=== PATIENT | female | born 1960 | race African-American/Black ===

== ENCOUNTER 2017-06-24 10:20 | Emergency (ER) | payer MEDICARE, MEDICAID ==
[~2017-06-24] VITALS: Ht 154.9 cm; Wt 67.9 kg
[~2017-06-24 10:20] MED LIST: AMBIEN; ESTR0.3T PO; FLUO10CA13 PO; GABA-826 PO; GABA300C10 PO; GABAPENTIN; LISI2.5T PO; LORA0.5T PO; LORAZEPAM; LOSA25TA5 PO; METHADONE; NORCO; OXYC10TA6 PO; PERCOCET; QUET200T PO; REGLAN; SEROQUEL; SOMA PO; TRIAMTERENE/HCTZ; VALA500T PO
[2017-06-24 10:22] VITALS: BP 110/75
[2017-06-24] MEDS ORDERED: ONDANSETRON ODT 4 MG ONE (10:54)
[2017-06-24] MEDS ORDERED: OXYcodone ORAL.CONC 20 MG/ML PO ONE (11:00)
[2017-06-24] MEDS ORDERED: ONDANSETRON ODT 4 MG PO ONE (11:00)
== END 2017-06-24 11:24 | disposition home or self-care (01) ==
LOC: ED 11:10
DX: K08.89 Other specified disorders of teeth and supporting structures (principal); I10 Essential (primary) hypertension; E11.9 Type 2 diabetes mellitus without complications; M19.90 Unspecified osteoarthritis, unspecified site; J45.909 Unspecified asthma, uncomplicated; Z86.73 Personal history of transient ischemic attack (TIA), and cerebral infarction without residual deficits; Z88.6 Allergy status to analgesic agent; Z88.8 Allergy status to other drugs, medicaments and biological substances; Z91.013 Allergy to seafood
CPT/HCPCS: 99283; Q0162

== ENCOUNTER 2017-06-26 18:35 | Emergency (ER) | payer MEDICARE, MEDICAID ==
[~2017-06-26] VITALS: Ht 154.9 cm; Wt 67.3 kg
[2017-06-26 19:47] VITALS: BP 118/78
== END 2017-06-26 19:50 | disposition home or self-care (01) ==
LOC: ED 19:50
DX: K08.89 Other specified disorders of teeth and supporting structures (principal); M19.90 Unspecified osteoarthritis, unspecified site; F32.9 Major depressive disorder, single episode, unspecified; E11.9 Type 2 diabetes mellitus without complications; I10 Essential (primary) hypertension; J45.909 Unspecified asthma, uncomplicated
CPT/HCPCS: 99283

== ENCOUNTER 2017-09-28 07:33 | Emergency (ER) | payer MEDICARE, MEDICAID ==
[~2017-09-28] VITALS: Ht 156.2 cm; Wt 69.1 kg
[2017-09-28] MEDS ORDERED: ALBUTEROL/IPRATROPIUM 2.5MG/0.5MG, 3 ML NPPB ONE (08:00)
[2017-09-28] MEDS ORDERED: IBUPROFEN 200 MG TABLET PO ONE (08:00)
[2017-09-28] MEDS ORDERED: ALBUTEROL/IPRATROPIUM 2.5MG/0.5MG, 3 ML ONE (08:07)
[2017-09-28] MEDS ORDERED: IBUPROFEN 200 MG TABLET ONE (08:28)
[2017-09-28] MEDS ORDERED: ONDANSETRON ODT 4 MG ONE (08:28)
[2017-09-28] MEDS ORDERED: ONDANSETRON ODT 4 MG PO ONE (08:30)
[2017-09-28 08:33] VITALS: BP 136/85
[2017-09-28] MEDS ORDERED: HYDR10TA4 PO (08:41)
[2017-09-28] MEDS ORDERED: OXYC10TA6 PO (08:41)
[2017-09-28] MEDS ORDERED: CARI250T PO (08:41)
[2017-09-28] MEDS ORDERED: ONDA4TAB7 PO (08:41)
[2017-09-28] MEDS ORDERED: METO5TAB57 PO (08:41)
== END 2017-09-28 09:08 | disposition home or self-care (01) ==
LOC: ED 08:16
DX: J20.9 Acute bronchitis, unspecified (principal); E11.9 Type 2 diabetes mellitus without complications; J45.909 Unspecified asthma, uncomplicated; I11.9 Hypertensive heart disease without heart failure; Z86.73 Personal history of transient ischemic attack (TIA), and cerebral infarction without residual deficits
CPT/HCPCS: 71020; 94640; 99284; Q0162; J7620

== ENCOUNTER 2017-12-25 06:28 | Emergency (ER) | payer MEDICARE, MEDICAID ==
[~2017-12-25] VITALS: Ht 157.5 cm; Wt 70.0 kg
[~2017-12-25 06:28] MED LIST changes: +CARI250T PO; +HYDR10TA4 PO; +LISI1TAB3 PO; +METO5TAB57 PO; +ONDA4TAB7 PO
[2017-12-25] MEDS ORDERED: ONDANSETRON 2MG/ML, 2ML IVPush ONE (07:30)
[2017-12-25] MEDS ORDERED: SODIUM CHLORIDE FLUSH 10ML SYR IVF ONE (07:30)
[2017-12-25] MEDS ORDERED: MORPHINE SULFATE 4 MG/ML, 1ML IVPush PRN (07:30)
[2017-12-25] MEDS ORDERED: ONDANSETRON 2MG/ML, 2ML ONE (07:36)
[2017-12-25] MEDS ORDERED: MORPHINE SULFATE 4 MG/ML, 1ML ONE (07:36)
[2017-12-25 07:43] LABS: BASOPHILS # (AUTO) 0.08 x10^3/uL (0-0.1); BASOPHILS % (AUTO) 1 % (0-1); EOSINOPHILS # (AUTO) 0.34 x10^3/uL (0-0.4); EOSINOPHILS % (AUTO) 4 % (1-7); LYMPHOCYTES # (AUTO) 3.15 x10^3/uL (1-3.4); LYMPHOCYTES % (AUTO) 38 % (22-44); MD NO; MEAN CORPUSCULAR HEMOGLOBIN 30.9 pg (27.0-34.8); MEAN CORPUSCULAR HGB CONC 33.4 g/dL (32.4-35.8); MEAN CORPUSCULAR VOLUME 92.6 fL (80-100); MEAN PLATELET VOLUME 8.1 fL (7.4-10.4); MONOCYTES # (AUTO) 0.52 x10^3/uL (0.2-0.8); MONOCYTES % (AUTO) 6 % (2-9); NEUTROPHILS # (AUTO) 4.21 x10^3/uL (1.8-6.8); NEUTROPHILS % (AUTO) 51 % (42-75); PLATELET COUNT 426 x10^3/uL (130-400); RED BLOOD COUNT 3.69 x10^6/uL (3.82-5.3); RED CELL DISTRIBUTION WIDTH 14.9 % (9.6-15.2)
[2017-12-25 07:44] LABS: MICROSCOPIC NOT IND
[2017-12-25 07:49] LABS: CULTURE INDICATED? NO
[2017-12-25 07:57] LABS: CHLORIDE 110 mmol/L (98-107)
[2017-12-25 08:25] LABS: ALANINE AMINOTRANSFERASE 16 U/L (12-78); ALBUMIN 3.4 g/dL (3.4-5.0); ANION GAP 8 mmol/L (5-15); CALCIUM 8.6 mg/dL (8.5-10.1)
[2017-12-25 08:26] LABS: ALKALINE PHOSPHATASE 99 U/L (45-117); BILIRUBIN,TOTAL 0.2 mg/dL (0.2-1.0); TOTAL PROTEIN 7.2 g/dL (6.4-8.2)
[2017-12-25 08:35] VITALS: BP 118/57
[2017-12-25] MEDS ORDERED: METOCLOPRAMIDE 5 MG/ML, 2ML ONE (08:58)
[2017-12-25] MEDS ORDERED: CEFTRIAXONE PMX 1GM/50ML 50 ML ONE (08:58)
[2017-12-25] MEDS ORDERED: AZITHROMYCIN 500 MG TABLET ONE (08:58)
[2017-12-25] MEDS ORDERED: METOCLOPRAMIDE 5 MG/ML, 2ML IVPush ONE (09:00)
[2017-12-25] MEDS ORDERED: AZITHROMYCIN 500 MG TABLET PO ONE (09:00)
[2017-12-25] MEDS ORDERED: CEFTRIAXONE PMX 1GM/50ML 50 ML IVPB ONE (09:00)
[2017-12-25] MEDS ORDERED: FLUCONAZOLE 100 MG TABLET PO ONE (10:00)
[2017-12-25] MEDS ORDERED: FLUCONAZOLE 100 MG TABLET ONE (10:01)
== END 2017-12-25 10:09 | disposition home or self-care (01) ==
LOC: ED 07:37
DX: K59.00 Constipation, unspecified (principal); R10.84 Generalized abdominal pain; E11.9 Type 2 diabetes mellitus without complications; F17.200 Nicotine dependence, unspecified, uncomplicated; R30.0 Dysuria; J45.909 Unspecified asthma, uncomplicated
CPT/HCPCS: 36415; 76830; 80053; 81003; 85025; 96365; 96375; 99285; J0696; J2405; J2765

== ENCOUNTER 2018-08-15 13:27 | Emergency (ER) | payer MEDICARE, MEDICAID ==
[~2018-08-15] VITALS: Ht 157.5 cm; Wt 76.0 kg
[~2018-08-15 13:27] MED LIST changes: +LORA-446 PO; -LOSA25TA5 PO; +LOSA25TA6 PO; +SERT50TA5 PO
[2018-08-15] MEDS ORDERED: FAMOTIDINE 20 MG TABLET PO ONE (14:00)
[2018-08-15] MEDS ORDERED: ONDANSETRON ODT 4 MG PO ONE (14:00)
[2018-08-15] MEDS ORDERED: MAALOX/HYOSCYAMINE/LIDOCAINE 45 ML BTL PO ONE (14:00)
[2018-08-15 14:23] LABS: MEAN CORPUSCULAR HEMOGLOBIN 28.9 pg (27.0-34.8); MEAN CORPUSCULAR HGB CONC 33.1 g/dL (32.4-35.8); MEAN CORPUSCULAR VOLUME 87.2 fL (80-100); MEAN PLATELET VOLUME 8.3 fL (7.4-10.4); PLATELET COUNT 372 x10^3/uL (130-400); RED BLOOD COUNT 4.15 x10^6/uL (3.82-5.3); RED CELL DISTRIBUTION WIDTH 17.3 % (9.6-15.2)
[2018-08-15 14:27] LABS: ALANINE AMINOTRANSFERASE 20 U/L (12-78); ALBUMIN 3.3 g/dL (3.4-5.0); ANION GAP 7 mmol/L (5-15); CALCIUM 9.3 mg/dL (8.5-10.1); CHLORIDE 103 mmol/L (98-107); CREATININE 0.75 mg/dL (0.55-1.02)
[2018-08-15] MEDS ORDERED: FAMOTIDINE 20 MG TABLET ONE (14:30)
[2018-08-15 14:31] LABS: ALKALINE PHOSPHATASE 115 U/L (45-117); BILIRUBIN,TOTAL 0.2 mg/dL (0.2-1.0); TOTAL PROTEIN 7.8 g/dL (6.4-8.2); TROPONIN I < 0.015 ng/mL (0.000-0.045)
[2018-08-15] MEDS ORDERED: MAALOX/HYOSCYAMINE/LIDOCAINE 45 ML BTL ONE (14:31)
[2018-08-15] MEDS ORDERED: ONDANSETRON ODT 4 MG ONE (14:31)
[2018-08-15 15:02] LABS: MD YES
[2018-08-15 15:07] VITALS: BP 112/49
[2018-08-15 15:27] LABS: BASOS% (MANUAL) 1 % (0-1); EOS#(MANUAL) 0.19 x10^3/uL (0.0-0.4); EOS% (MANUAL) 2 % (1-7); LYMPH#(MANUAL) 2.98 x10^3/uL (1-3.4); LYMPHS% (MANUAL) 31 % (22-44); MONOS#(MANUAL) 0.29 x10^3/uL (0.3-2.7); MONOS% (MANUAL) 3 % (2-9); SEG#(MANUAL) 6.05 x10^3/uL (1.8-6.8); SEGS% (MANUAL) 63 % (42-75)
[2018-08-15 15:28] LABS: <PLATELET ESTIMATE> ADEQUATE; ANISOCYTOSIS 1+; OVALOCYTES 1+
[2018-08-15 15:29] LABS: LARGE PLATELETS 1+
== END 2018-08-15 16:02 | disposition home or self-care (01) ==
LOC: ED 15:56
DX: K21.9 Gastro-esophageal reflux disease without esophagitis (principal); R07.89 Other chest pain; F17.200 Nicotine dependence, unspecified, uncomplicated; E11.8 Type 2 diabetes mellitus with unspecified complications; I11.9 Hypertensive heart disease without heart failure; M19.90 Unspecified osteoarthritis, unspecified site; M54.9 Dorsalgia, unspecified; G89.29 Other chronic pain; J44.9 Chronic obstructive pulmonary disease, unspecified; Z86.73 Personal history of transient ischemic attack (TIA), and cerebral infarction without residual deficits
CPT/HCPCS: 36415; 71045; 80053; 83690; 84484; 85025; 93005; 99285; Q0162

== ENCOUNTER 2018-10-28 15:56 | Emergency (ER) | payer MEDICARE, MEDICAID ==
[~2018-10-28] VITALS: Ht 157.5 cm; Wt 78.8 kg
[~2018-10-28 15:56] MED LIST changes: +LOSA25TA25 PO; -LOSA25TA6 PO; +SERT50TA28 PO; -SERT50TA5 PO
--- NOTE | 2018-10-28 16:31 | NUR ---
[facility] TECHNICIAN: PT TO ED ROOM 24 FROM LOBBY IN NAD
[2018-10-28 16:55] LABS: BASOPHILS # (AUTO) 0.26 x10^3/uL (0-0.1); BASOPHILS % (AUTO) 3 % (0-1); EOSINOPHILS # (AUTO) 0.36 x10^3/uL (0-0.4); EOSINOPHILS % (AUTO) 4 % (1-7); LYMPHOCYTES # (AUTO) 4.33 x10^3/uL (1-3.4); LYMPHOCYTES % (AUTO) 45 % (22-44); MD NO; MEAN CORPUSCULAR HEMOGLOBIN 29.8 pg (27.0-34.8); MEAN CORPUSCULAR HGB CONC 33.6 g/dL (32.4-35.8); MEAN CORPUSCULAR VOLUME 88.6 fL (80-100); MEAN PLATELET VOLUME 7.9 fL (7.4-10.4); MONOCYTES # (AUTO) 0.49 x10^3/uL (0.2-0.8); MONOCYTES % (AUTO) 5 % (2-9); NEUTROPHILS # (AUTO) 4.19 x10^3/uL (1.8-6.8); NEUTROPHILS % (AUTO) 44 % (42-75); PLATELET COUNT 438 x10^3/uL (130-400); RED BLOOD COUNT 3.89 x10^6/uL (3.82-5.3); RED CELL DISTRIBUTION WIDTH 14.8 % (9.6-15.2)
[2018-10-28] MEDS ORDERED: ALBUTEROL/IPRATROPIUM 2.5MG/0.5MG, 3 ML NPPB SCH (17:00)
[2018-10-28] MEDS ORDERED: ALBUTEROL/IPRATROPIUM 2.5MG/0.5MG, 3 ML ONE ×2 (17:07→17:16)
[2018-10-28 17:08] LABS: ALBUMIN 3.6 g/dL (3.4-5.0); ANION GAP 6 mmol/L (5-15); CALCIUM 8.8 mg/dL (8.5-10.1); CHLORIDE 106 mmol/L (98-107)
[2018-10-28 17:18] LABS: ALANINE AMINOTRANSFERASE 21 U/L (12-78); ALKALINE PHOSPHATASE 104 U/L (45-117); BILIRUBIN,TOTAL 0.7 mg/dL (0.2-1.0); CREATININE 0.97 mg/dL (0.55-1.02); TOTAL PROTEIN 7.6 g/dL (6.4-8.2)
[2018-10-28 17:29] VITALS: BP 120/43
--- NOTE | 2018-10-28 17:29 | NUR ---
pt presents to ED with c/o sob x 2 days. pt denies any pain. pt a&o, resps even and unlabored, pt very talkative, speaking easily in full sentences. breathing tx complete, pt reports sob improved. call light in reach, all monitors in place.
--- NOTE | 2018-10-28 17:43 | NUR ---
pt medicated per emar. pt tolerated well. pt aox4. resps even and unlabored. all monitors in place. call light within reach.
--- NOTE | 2018-10-28 18:38 | NUR ---
pt given dc instructions and script. pt educated regarding dc medication which is albuterol at dc. pt amb to dc with steady gait. pt aox4. resps even and unlabored. no acute distress at dc.
== END 2018-10-28 18:39 | disposition home or self-care (01) ==
LOC: ED 17:03
DX: J44.1 Chronic obstructive pulmonary disease with (acute) exacerbation (principal); F17.200 Nicotine dependence, unspecified, uncomplicated; K21.9 Gastro-esophageal reflux disease without esophagitis; G89.29 Other chronic pain; I10 Essential (primary) hypertension; E11.9 Type 2 diabetes mellitus without complications
CPT/HCPCS: 36415; 71046; 80053; 83880; 85025; 93005; 94640; 99284; J7512; J7620

== ENCOUNTER 2018-12-10 12:46 | Emergency (ER) | payer MEDICARE, MEDICAID ==
[~2018-12-10] VITALS: Ht 157.5 cm; Wt 75.4 kg
--- NOTE | 2018-12-10 13:09 | NUR ---
FIRST CONTACT WITH PT. Pt resting on gurney connected to all monitors. Pt is 99% on room air, skin is appropriate for ethnicity, warm, and dry. PT is [id number]. All safety measures in place. NADN.
[2018-12-10] MEDS ORDERED: ALBUTEROL/IPRATROPIUM 2.5MG/0.5MG, 3 ML NPPB ONE (13:30)
[2018-12-10] MEDS ORDERED: ALBU0.63 NEB (13:32)
[2018-12-10] MEDS ORDERED: AMLO10TA8 PO (13:32)
[2018-12-10] MEDS ORDERED: ALBUTEROL SULFATE 2.5 MG/3 ML NPPB ONE (13:35)
[2018-12-10] MEDS ORDERED: ALBUTEROL SULFATE 2.5 MG/3 ML ONE (13:41)
[2018-12-10] MEDS ORDERED: ACETAMINOPHEN 500 MG TABLET ONE (13:45)
[2018-12-10] MEDS ORDERED: BENZONATATE 100 MG CAPSULE ONE ×2 (13:45→13:48)
[2018-12-10] MEDS ORDERED: ACETAMINOPHEN 325 MG TABLET PO ONE (14:00)
[2018-12-10] MEDS ORDERED: BENZONATATE 100 MG CAPSULE PO ONE (14:00)
[2018-12-10] MEDS ORDERED: CEFTRIAXONE PMX 1GM/50ML 50 ML IV ONE (14:30)
[2018-12-10 14:57] LABS: BASOPHILS # (AUTO) 0.03 x10^3/uL (0-0.1); BASOPHILS % (AUTO) 0 % (0-1); EOSINOPHILS # (AUTO) 0.39 x10^3/uL (0-0.4); EOSINOPHILS % (AUTO) 4 % (1-7); LYMPHOCYTES # (AUTO) 2.55 x10^3/uL (1-3.4); LYMPHOCYTES % (AUTO) 24 % (22-44); MD NO; MEAN CORPUSCULAR HGB CONC 32.6 g/dL (32.4-35.8); MEAN PLATELET VOLUME 7.6 fL (7.4-10.4); MONOCYTES # (AUTO) 0.42 x10^3/uL (0.2-0.8); MONOCYTES % (AUTO) 4 % (2-9); NEUTROPHILS # (AUTO) 7.09 x10^3/uL (1.8-6.8); NEUTROPHILS % (AUTO) 68 % (42-75); PLATELET COUNT 432 x10^3/uL (130-400); RED BLOOD COUNT 3.78 x10^6/uL (3.82-5.3); RED CELL DISTRIBUTION WIDTH 15.9 % (9.6-15.2)
[2018-12-10 15:08] LABS: ALBUMIN 3.4 g/dL (3.4-5.0); ANION GAP 7 mmol/L (5-15); CHLORIDE 109 mmol/L (98-107); CREATININE 1.07 mg/dL (0.55-1.02)
[2018-12-10] MEDS ORDERED: CEFTRIAXONE 1,000 MG IM ONE (15:30)
[2018-12-10] MEDS ORDERED: POTASSIUM CHLORIDE 20 MEQ TAB.ER.PRT PO ONE (15:30)
[2018-12-10] MEDS ORDERED: POTASSIUM CHLORIDE 20 MEQ TAB.ER.PRT ONE (15:34)
[2018-12-10] MEDS ORDERED: CEFTRIAXONE 1,000 MG ONE (15:34)
[2018-12-10 15:46] VITALS: BP 115/69
--- NOTE | 2018-12-10 16:01 | NUR ---
Patient given discharge instructions and they have confirmed that they understand the instructions. Patient ambulatory with steady gait. Pt left with prescriptions, discharge paperwork, and all personal belongings.
== END 2018-12-10 16:03 | disposition home or self-care (01) ==
LOC: ED 13:02
DX: J45.31 Mild persistent asthma with (acute) exacerbation (principal); J45.32 Mild persistent asthma with status asthmaticus; J15.9 Unspecified bacterial pneumonia; E87.6 Hypokalemia; I11.9 Hypertensive heart disease without heart failure; E11.9 Type 2 diabetes mellitus without complications; K21.9 Gastro-esophageal reflux disease without esophagitis; J44.9 Chronic obstructive pulmonary disease, unspecified; F17.200 Nicotine dependence, unspecified, uncomplicated; M19.90 Unspecified osteoarthritis, unspecified site; Z88.5 Allergy status to narcotic agent; Z88.6 Allergy status to analgesic agent; Z91.013 Allergy to seafood; Z88.8 Allergy status to other drugs, medicaments and biological substances; Z98.890 Other specified postprocedural states; Z90.49 Acquired absence of other specified parts of digestive tract; Z98.51 Tubal ligation status; Z86.73 Personal history of transient ischemic attack (TIA), and cerebral infarction without residual deficits
CPT/HCPCS: 36415; 71045; 80048; 82040; 85025; 93005; 94640; 96372; 99284; J0696; J7512; J7613

== ENCOUNTER 2018-12-17 06:29 | Emergency (ER) | payer MEDICARE, MEDICAID ==
[~2018-12-17] VITALS: Ht 160 cm; Wt 78.0 kg
[~2018-12-17 06:29] MED LIST changes: +ALBU0.63 NEB; +AMLO10TA8 PO
[2018-12-17 06:31] VITALS: BP 127/67
--- NOTE | 2018-12-17 06:44 | NUR ---
PT C/O INCREASED SOB AND COUGH FOR THE LAST 1.5 DAYS. STATES SHE JUST FINISHED ANTIBIOTICS AND PREDNISONE AT THAT TIME. STATES RELIEF WHILE ON MEDS BUT SYMPTOMS BECAME WORSE AFTER FINISHING. C/O YELLOW STATES NO RELIEF WITH HOME NEB AND INHALER--LAST USED LAST NIGHT.PT SPEAKING IN FULL SENTENCES WITH NO DIFFICULTY. VSS. NSR ON MONITOR. ERP AT BEDSIDE TO [facility].
--- NOTE | 2018-12-17 06:55 | NUR ---
FLU SWAB COLLECTED AND SENT. REPORT TO [facility].
[2018-12-17] MEDS ORDERED: ALBUTEROL/IPRATROPIUM 2.5MG/0.5MG, 3 ML NPPB ONE (07:00)
--- NOTE | 2018-12-17 07:03 | NUR ---
BEDSIDE HANDOFF REPORT FROM [facility]. PT RETURNING FROM RAD AT THIS TIME. CP MONITORS IN PLACE. CALL LIGHT IN REACH. AWAITING RAD RESULTS.
[2018-12-17] MEDS ORDERED: ALBUTEROL/IPRATROPIUM 2.5MG/0.5MG, 3 ML ONE (07:10)
[2018-12-17 07:30] LABS: MEAN CORPUSCULAR HEMOGLOBIN 29.5 pg (27.0-34.8); MEAN CORPUSCULAR HGB CONC 33.2 g/dL (32.4-35.8); MEAN CORPUSCULAR VOLUME 88.8 fL (80-100); MEAN PLATELET VOLUME 7.5 fL (7.4-10.4); PLATELET COUNT 443 x10^3/uL (130-400); RED BLOOD COUNT 3.88 x10^6/uL (3.82-5.3); RED CELL DISTRIBUTION WIDTH 16.8 % (9.6-15.2)
[2018-12-17 07:37] LABS: ALBUMIN 3.4 g/dL (3.4-5.0); ANION GAP 4 mmol/L (5-15); CHLORIDE 112 mmol/L (98-107); CREATININE 0.96 mg/dL (0.55-1.02)
[2018-12-17 07:48] LABS: RAPID INFLUENZA A Negative (Negative); RAPID INFLUENZA B Negative (Negative)
[2018-12-17] MEDS ORDERED: IBUPROFEN 600 MG TABLET PO ONE (08:00)
[2018-12-17] MEDS ORDERED: IBUPROFEN 600 MG TABLET ONE (08:06)
[2018-12-17 08:08] LABS: MD SCAN
[2018-12-17 08:09] LABS: BASOPHILS # (AUTO) 0.02 x10^3/uL (0-0.1); BASOPHILS % (AUTO) 0 % (0-1); EOSINOPHILS # (AUTO) 0.84 x10^3/uL (0-0.4); EOSINOPHILS % (AUTO) 8 % (1-7); LYMPHOCYTES # (AUTO) 2.42 x10^3/uL (1-3.4); LYMPHOCYTES % (AUTO) 22 % (22-44); MONOCYTES # (AUTO) 0.33 x10^3/uL (0.2-0.8); MONOCYTES % (AUTO) 3 % (2-9); NEUTROPHILS # (AUTO) 7.58 x10^3/uL (1.8-6.8); NEUTROPHILS % (AUTO) 68 % (42-75)
--- NOTE | 2018-12-17 08:30 | NUR ---
Patient/Caregiver given discharge instructions and they have confirmed that they understand the instructions. Patient ambulatory with steady gait. PT LEFT WITH ALL PERSONAL BELONGINGS.
== END 2018-12-17 08:31 | disposition home or self-care (01) ==
LOC: ED 06:53
DX: J44.9 Chronic obstructive pulmonary disease, unspecified (principal); I10 Essential (primary) hypertension; F17.200 Nicotine dependence, unspecified, uncomplicated
CPT/HCPCS: 36415; 71046; 80048; 82040; 85025; 87400; 94640; 99284; J7620